=== PATIENT | female | born 2000 | race Caucasian/White ===

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

== ENCOUNTER 2022-12-11 18:28 | Inpatient (IN) | payer BC ==
[2022-12-11] MEDS: Lactated Ringers 1,000 ML IV SCH ×2 (19:00→21:58)
[2022-12-11] MEDS ORDERED: Misoprostol 200 MCG Tab PO PRN (19:13)
[2022-12-11] MEDS ORDERED: Tranexamic Acid 1,000 MG in Sodium Chloride 0.9% 100 ML IV PRN (19:13)
[2022-12-11] MEDS ORDERED: Butorphanol 1 MG/ML SDV IVPUSH PRN (19:13)
[2022-12-11] MEDS ORDERED: Terbutaline 1 MG/ML SDV SUBCUT PRN (19:13)
[2022-12-11] MEDS ORDERED: Carboprost Tromethamine 250 MCG/1 ML Amp IM PRN (19:13)
[2022-12-11] MEDS ORDERED: Water For Irrigation,Sterile 1,000 ML Container IRR PRN (19:13)
[2022-12-11] MEDS ORDERED: Sodium Chloride 0.9% 10 ML Syringe FLUSH PRN (19:13)
[2022-12-11] MEDS ORDERED: Sodium Chloride 0.9% 2.5 ML Syringe FLUSH PRN (19:13)
[2022-12-11] MEDS ORDERED: Sodium Chloride 0.9% 20 ML SDV IV PRN (19:13)
[2022-12-11] MEDS ORDERED: Lidocaine 1% 50 ML MDV INJECT PRN (19:13)
[2022-12-11] MEDS ORDERED: Methylergonovine 0.2 MG/1 ML Amp IM PRN (19:13)
[2022-12-11] MEDS ORDERED: Oxytocin/0.9 % Sodium Chloride 30 UNIT/500 ML BAG IV SCH ×2 (19:15)
[2022-12-11] MEDS ORDERED: Misoprostol 25 MCG (1/4 of 100 MCG) Tab VAG PRN (19:51)
[2022-12-11] MEDS ORDERED: Phenylephrine HCl In 0.9% NaCl 1 MG/10 ML Vial IVPUSH PRN (19:53)
[2022-12-11] MEDS ORDERED: ePHEDrine 50 MG/ML SDV IVPUSH PRN ×2 (19:53)
[2022-12-11] MEDS ORDERED: Phenylephrine HCl In 0.9% NaCl 1 MG/10 ML Vial IVPUSH SCH (20:00)
[2022-12-11] MEDS ORDERED: Ropivacaine HCl/PF 400 MG in Premix Bag 1 BAG EPIDUR SCH (20:00)
[2022-12-11] MEDS ORDERED: Misoprostol 25 MCG (1/4 of 100 MCG) Tab ONE (20:17)
[2022-12-11] MEDS: Ondansetron 4 MG/2 ML SDV IVPUSH PRN (21:57)
[2022-12-12] MEDS: Ondansetron 4 MG/2 ML SDV IVPUSH PRN (03:57)
[2022-12-12] MEDS: Lactated Ringers 1,000 ML IV SCH (04:40)
[2022-12-12] MEDS ORDERED: Benzocaine/Menthol 20%-0.5% Spray 78 GM Cannister TOP PRN (05:54)
[2022-12-12] MEDS ORDERED: Acetaminophen 500 MG Tab PO PRN (05:54)
[2022-12-12] MEDS ORDERED: Ibuprofen 400 MG Tab PO PRN (05:54)
[2022-12-12] MEDS ORDERED: Bisacodyl 10 MG Supp RECTAL PRN (05:54)
[2022-12-12] MEDS ORDERED: Docusate Sodium 100 MG Cap PO PRN (05:54)
[2022-12-12] MEDS ORDERED: Misoprostol 200 MCG Tab RECTAL PRN (05:54)
[2022-12-12] MEDS ORDERED: Lanolin 100% Cream 7 GM Tube TOP PRN (05:54)
[2022-12-12] MEDS ORDERED: Witch Hazel Medicated Pads 40/Jar TOP PRN (05:54)
[2022-12-12] MEDS ORDERED: Tranexamic Acid 1,000 MG in Sodium Chloride 0.9% 100 ML IV PRN (05:54)
[2022-12-12] MEDS: Ibuprofen 800 MG Tab PO PRN ×2 (08:16→15:56)
[2022-12-12] MEDS: Acetaminophen 500 MG Tab PO PRN ×2 (08:17→15:57)
[2022-12-13] MEDS: Ibuprofen 800 MG Tab PO PRN (08:53)
[2022-12-13] MEDS: Acetaminophen 500 MG Tab PO PRN (08:53)
== END 2022-12-13 12:45 | disposition home or self-care (01) | DRG 560 ==
LOC: MW.OB 18:28 → MW.OBCHECK 18:28 → MW.OB 19:14 → OBSVTOIN 12-12 05:32 → MW.OB 12-12 11:59
PROVIDERS: ADMIT Obstetrics & Gynecology; ATTEND Obstetrics & Gynecology
PROC: 10E0XZZ Delivery of Products of Conception, External Approach (ICD-10-PCS; principal; 2022-12-12)
PROC: 10H07YZ Insertion of Other Device into Products of Conception, Via Natural or Artificial Opening (ICD-10-PCS; 2022-12-12)
PROC: 3E0R3BZ Introduction of Anesthetic Agent into Spinal Canal, Percutaneous Approach (ICD-10-PCS; 2022-12-12)
PROC: 00HU33Z Insertion of Infusion Device into Spinal Canal, Percutaneous Approach (ICD-10-PCS; 2022-12-12)
PROC: 10907ZC Drainage of Amniotic Fluid, Therapeutic from Products of Conception, Via Natural or Artificial Opening (ICD-10-PCS; 2022-12-12)
DX: O14.04 Mild to moderate pre-eclampsia, complicating childbirth (principal); Z37.0 Single live birth; O69.81X0 Labor and delivery complicated by cord around neck, without compression, not applicable or unspecified; Z3A.39 39 weeks gestation of pregnancy; O77.0 Labor and delivery complicated by meconium in amniotic fluid; Z20.822 Contact with and (suspected) exposure to COVID-19
CPT/HCPCS: 36415; 51702; 59025; 59409; 82803; 85014; 85018; 85027; 86592; 86850; 86900; 86901; A9270-GY; J2405; J2590; J3490; J7120; U0002